=== PATIENT | male | born 1960 | race Hispanic/Latino ===

== ENCOUNTER 2020-07-18 07:13 | Day surgery (SDC) | payer OTHER ==
[2020-07-13 10:42] LABS: Absolute Lymphocytes (CBC) 2.4 K/uL (0.7-4.9); Basophils % 1.7 % (0-1.3); Hematocrit 42.9 % (39.6-49.0); Lymphocytes % 36.8 % (15.3-44.8); MPV 8.2 fL (7.6-11.3); RBC Red Blood Cell Count 5.44 M/uL (4.33-5.43)
--- NOTE | 2020-07-13 11:09 | RAD REPORT ---
EXAM DESCRIPTION: Von Zhong (2 Views)07/13/2020 11:00 am CLINICAL HISTORY: Preop COMPARISON: 2017 FINDINGS: The lungs appear clear of acute infiltrate. The heart is normal size IMPRESSION: No acute abnormalities displayed
[2020-07-18] MEDS ORDERED: CEFAZOLIN/SWI 1gm 1 GM/10 ML SYR ONE (07:42)
[2020-07-18] MEDS ORDERED: Ringers Lactate 1,000 ML IV ONE ×2 (07:42→09:44)
[2020-07-18] MEDS ORDERED: SCOPOLAMINE HYDROBROMIDE PATCH TD ONE (08:07)
[2020-07-18] MEDS ORDERED: propofoL 200 MG/20 ML VIAL IV ONE ×2 (08:24→08:59)
[2020-07-18] MEDS ORDERED: KETOROLAC 30 MG/ML INJ ONE (08:24)
[2020-07-18] MEDS ORDERED: dexAMETHasone 10 MG/ML VIAL ONE (08:24)
[2020-07-18] MEDS ORDERED: MIDAZOLAM HCL 2 MG/2 ML INJ ONE (08:24)
[2020-07-18] MEDS ORDERED: LIDOCAINE 2% MPF 5 ML VIAL ONE (08:24)
[2020-07-18] MEDS ORDERED: ONDANSETRON 4 MG/2 ML VIAL ONE (08:25)
[2020-07-18] MEDS ORDERED: FENTANYL CITR 250 MCG/5 ML ONE (08:25)
--- NOTE | 2020-07-18 09:54 | P.BOP ---
Preoperative diagnosis: tender left inguinal hernia Postoperative diagnosis: same Primary procedure: Open repair of tender reducible left inguinal hernia with mesh Military Cook: STAN BLACKWOOD (FUEL INJECTION SERVICER) Estimated blood loss: <10cc Specimen: none Anesthesia: General Complications: None Drain(s): Other (medium mesh ) Transferred to: Recovery Room
[2020-07-18] MEDS: HYDROMORPHONE HCL 1 MG/ML INJ ONE ×2 (10:10→10:15)
[2020-07-18 10:14] VITALS: O2SAT 100
[2020-07-18] MEDS ORDERED: TAMSULOSIN 0.4 MG SR CAP PO ONE (10:30)
[2020-07-18] MEDS ORDERED: TAMSULOSIN 0.4 MG SR CAP ONE (10:45)
[2020-07-18 12:01] VITALS: BP 124/73; TEMP 96.7
--- NOTE | 2020-07-27 12:49 | OP ---
Date of Procedure: 07/18/2020 Surgeon: Jf Lewis MD Steam Train Driver: Izzy Ngo. Preoperative Diagnosis: Left tender inguinal hernia. Postoperative Diagnosis: Left tender inguinal hernia. Procedure: Open repair of tender reducible left inguinal hernia with mesh. Estimated Blood Loss: Less than 10 mL. Specimen: None. Anesthesia: General plus local. Placement: Medium mesh. Indications For Procedure: This is the case of a male, who comes to us with a tender reducible left inguinal hernia. Benefits, alternatives, and risks of open versus laparoscopic repair were discussed with the patient. It was decided to have an open repair with possible mesh use. With benefits, alt ernatives, and risks including, but not limited to infection, bleeding, damage to adjacent structures , anesthesia complication, recurrence, ME, and even . They also understand this may not relieve symptoms. He might need more than one surgical intervention. He understood, signed a consent. The patient also was advised the use of mesh placement pros and cons of mesh was discussed with the deyvi ent and he allowed me to use mesh. Description Of Procedure: The patient was brought to the operating room, placed in supine position. Anesthesia was done without complication. A time-out was called. Left inguinal region was prepped and draped in sterile fashion. Local anesthesia was applied, followed by sharp incision of the skin in the left inguinal region. Incision was carried down to Diana fascia, which was opened under dire ct vision. External oblique aponeurosis was opened in direction of the fibers to connect to the supe rficial inguinal ring. The ilioinguinal nerve, iliohypogastric nerves were protected behind external oblique aponeurosis. At that moment, we put a Post around the spermatic cord. We identified the hernia sac, imbricated the hernia sac with the help of Prolene. Placed the mesh sheet on the floor of the canal securing that to the pubic tubercle shelving edge of inguinal ligament, and transversali s fascia without any strangulation of the spermatic cord. Before that, a mesh plug was placed in the area. The mesh was secured in place with VersaTack. The patient tolerated the procedure well. Farrah oinguinal nerve, iliohypogastric nerve were brought back into the inguinal canal. The Malou was re moved. Superficial inguinal ring was reconstructed and external oblique aponeurosis was closed with Prolene making sure the nerves are not trapped. Area was irrigated. Diana fascia closed with 3-0 c hromic and the skin was approximated. Sponge count and instrument counts were correct. Patient placido rated the procedure well. Patient was sent to recovery in stable condition. Discharge Diagnosis: Reducible tender left inguinal hernia. Disposition: Home. Activity: As tolerated, no heavy lifting. Plan: Follow up in my office in 1 week, call for appointment at [phone]. Keep area dry for 48 hour s, then may shower. Cold compress to the inguinal region for 24 hours. Medications: See orders. YEYO/MODL Voice ID: [id number] Report ID: [id number]
== END 2020-07-18 11:55 | disposition home or self-care (01) ==
LOC: PRE 07:13
PROVIDERS: ATTEND Surgery
PROC: 0YU60JZ Supplement Left Inguinal Region with Synthetic Substitute, Open Approach (ICD-10-PCS; principal; 2020-07-18 08:30)
DX: K40.90 Unilateral inguinal hernia, without obstruction or gangrene, not specified as recurrent (principal); E78.00 Pure hypercholesterolemia, unspecified; M54.9 Dorsalgia, unspecified; G89.29 Other chronic pain; N40.0 Benign prostatic hyperplasia without lower urinary tract symptoms; Z20.828 Contact with and (suspected) exposure to other viral communicable diseases
CPT/HCPCS: 93005; 85025; 80048; 36415; 71046; 49505; U0002; J2704 ×2; J2250; J3010; J1100; J1170; J0690; J7120 ×2; J2405